=== PATIENT | male | born 1935 | race Caucasian/White ===

== ENCOUNTER 2018-06-12 01:16 | Inpatient (IN) ==
[2018-06-12 02:16] LABS: Basophils # 0.1 10*3/uL (0.0-0.2); Basophils % 0.6 % (0.0-0.8); Eosinophils # 0.2 10*3/uL (0.0-0.87); Eosinophils % 2.3 % (0.00-10.9); Hematocrit 41.7 VOL% (42.0-52.0); Hemoglobin 14.3 GM/DL (14.0-18.0); Immature Granulocytes % 0.5 %; Immature Granulocytes Absolute 0.04 #; Lymphocytes # 1.1 10*3/uL (1.4-4.0); Mean Corpuscular HGB Conc 34.3 GM/DL (32-36); Mean Corpuscular Hemoglobin 32 PG (27-34); Mean Corpuscular Volume 93.7 FL (87-102); Mean Platelet Volume 9.7 FL (9.6-12.0); Monocytes # 0.8 10*3/uL (0.11-0.8); Monocytes % 8.9 % (1.7-12.7); Neutrophils # 6.3 10*3/uL (1.4-7.4); Neutrophils % 74.7 % (38.7-73.9); Platelet Count 258 T/CUMM (130-400); Red Blood Count 4.45 MC/CUMM (3.8-5.5); Red Cell Distribution Width 13.4 % (9.3-17.3); White Blood Count 8.4 T/CUMM (4-12)
[2018-06-12 02:37] LABS: Alanine Aminotransferase 40 U/L (16-61); Alkaline Phosphatase 97 U/L (45-117); Aspartate Amino Transferase 29 U/L (0-37); Bilirubin,Total < 0.39 MG/DL (0.2-1.0); Blood Urea Nitrogen 14 MG/DL (7-18); Calcium 9.1 MG/DL (8.5-10.1); Glucose 132 MG/DL (74-106); Potassium 3.7 MMOL/L (3.5-5.1); Sodium 136 MMOL/L (136-145); Total Protein 8.1 G/DL (6.4-8.3)
[2018-06-12] MEDS ORDERED: METOPROLOL TARTRATE 5 MG/5 ML VIAL IV STA (03:49)
[2018-06-12] MEDS ORDERED: METOPROLOL TARTRATE 25 MG TABLET PO ONE (04:50)
[2018-06-12] MEDS ORDERED: ACETAMINOPHEN 325 MG TABLET PO PRN (04:51)
[2018-06-12] MEDS ORDERED: ONDANSETRON 4 MG/2 ML VIAL IV PRN (04:51)
[2018-06-12] MEDS ORDERED: ATENOLOL 25 MG TABLET PO STA (05:22)
[2018-06-12 07:39] LABS: Thyroid Stimulating Hormone 4.12 uIU/ml (0.358-3.74)
[2018-06-12] MEDS ORDERED: ENOXAPARIN 40 MG/0.4 ML SYRINGE SUBCUT SCH (09:00)
[2018-06-12] MEDS ORDERED: ENOXAPARIN 60 MG/0.6 ML SYRINGE SUBCUT SCH (12:00)
[2018-06-12] MEDS ORDERED: METOPROLOL TARTRATE 50 MG TABLET PO SCH (21:00)
[2018-06-12] MEDS: APIXABAN 5 MG TABLET PO SCH (21:45)
[2018-06-12] MEDS: ATORVASTATIN 20 MG TABLET PO SCH (21:45)
[2018-06-12] MEDS: METOPROLOL SUCCINATE XL 25 MG TABLET PO SCH (21:46)
[2018-06-13 05:01] LABS: Basophils # 0.1 10*3/uL (0.0-0.2); Basophils % 0.8 % (0.0-0.8); Eosinophils # 0.5 10*3/uL (0.0-0.87); Eosinophils % 6.6 % (0.00-10.9); Hematocrit 40.3 VOL% (42.0-52.0); Hemoglobin 13.8 GM/DL (14.0-18.0); Immature Granulocytes % 0.3 %; Immature Granulocytes Absolute 0.02 #; Lymphocytes # 1.4 10*3/uL (1.4-4.0); Lymphocytes % 18.5 % (21.2-54.2); Mean Corpuscular HGB Conc 34.2 GM/DL (32-36); Mean Corpuscular Hemoglobin 32 PG (27-34); Mean Corpuscular Volume 93.3 FL (87-102); Mean Platelet Volume 9.9 FL (9.6-12.0); Monocytes # 0.8 10*3/uL (0.11-0.8); Monocytes % 11.1 % (1.7-12.7); Neutrophils # 4.7 10*3/uL (1.4-7.4); Neutrophils % 62.7 % (38.7-73.9); Platelet Count 253 T/CUMM (130-400); Red Blood Count 4.32 MC/CUMM (3.8-5.5); Red Cell Distribution Width 13.6 % (9.3-17.3); White Blood Count 7.6 T/CUMM (4-12)
[2018-06-13 05:40] LABS: Calcium 8.9 MG/DL (8.5-10.1); Osmolality,Calculated 281.3 MOS/KG (273-304); Potassium 4.1 MMOL/L (3.5-5.1)
[2018-06-13] MEDS: METOPROLOL SUCCINATE XL 25 MG TABLET PO SCH (08:37)
[2018-06-13] MEDS: APIXABAN 5 MG TABLET PO SCH ×2 (08:37→22:16)
[2018-06-13] MEDS: METOPROLOL SUCCINATE XL 50 MG TABLET PO SCH ×2 (09:22→22:16)
[2018-06-13] MEDS ORDERED: AMIODARONE INJ 150 MG in DEXTROSE 5% 100 ML IV ONE (13:20)
[2018-06-13] MEDS ORDERED: AMIODARONE INJ 450 MG in DEXTROSE 5% 241 ML IV SCH (13:30)
[2018-06-13] MEDS: ATORVASTATIN 20 MG TABLET PO SCH (22:16)
[2018-06-13] MEDS: AMIODARONE INJ 450 MG in DEXTROSE 5% 241 ML IV SCH (22:30)
[2018-06-14 06:54] LABS: Basophils % 0.4 % (0.0-0.8); Eosinophils # 0.5 10*3/uL (0.0-0.87); Eosinophils % 4.6 % (0.00-10.9); Hematocrit 40.2 VOL% (42.0-52.0); Hemoglobin 13.5 GM/DL (14.0-18.0); Immature Granulocytes % 0.4 %; Immature Granulocytes Absolute 0.04 #; Lymphocytes # 1.5 10*3/uL (1.4-4.0); Lymphocytes % 13.8 % (21.2-54.2); Mean Corpuscular HGB Conc 33.6 GM/DL (32-36); Mean Corpuscular Hemoglobin 32 PG (27-34); Mean Corpuscular Volume 95.3 FL (87-102); Mean Platelet Volume 10.2 FL (9.6-12.0); Monocytes # 1.2 10*3/uL (0.11-0.8); Monocytes % 11.4 % (1.7-12.7); Neutrophils # 7.4 10*3/uL (1.4-7.4); Neutrophils % 69.4 % (38.7-73.9); Platelet Count 236 T/CUMM (130-400); Red Blood Count 4.22 MC/CUMM (3.8-5.5); Red Cell Distribution Width 13.6 % (9.3-17.3); White Blood Count 10.7 T/CUMM (4-12)
[2018-06-14] MEDS: APIXABAN 5 MG TABLET PO SCH ×2 (08:35→21:13)
[2018-06-14] MEDS: METOPROLOL SUCCINATE XL 50 MG TABLET PO SCH (08:35)
[2018-06-14 08:54] LABS: Eosinophils 4 % (0-10); Lymphocytes 8 % (20-55); Segmented Neutrophils 82 % (50-85); Total Cells Counted 100
[2018-06-14 08:55] LABS: Reactive Lymphocytes 1+
[2018-06-14 08:57] LABS: Hypochromasia 1+; Platelet Estimate Normal
[2018-06-14 09:01] LABS: Giant Platelets Few; Ovalocytes 1+
[2018-06-14] MEDS ORDERED: METOPROLOL SUCCINATE XL 50 MG TABLET PO ONE (09:49)
[2018-06-14] MEDS: ATORVASTATIN 20 MG TABLET PO SCH (21:13)
[2018-06-14] MEDS: METOPROLOL SUCCINATE XL 100 MG TABLET PO SCH (21:13)
[2018-06-14] MEDS: AMIODARONE INJ 450 MG in DEXTROSE 5% 241 ML IV SCH (21:18)
[2018-06-15] MEDS: APIXABAN 5 MG TABLET PO SCH (08:29)
[2018-06-15] MEDS: METOPROLOL SUCCINATE XL 100 MG TABLET PO SCH (08:29)
[2018-06-15 08:32] VITALS: BP 127/73
== END 2018-06-15 12:24 | disposition home or self-care (01) | DRG 309 ==
LOC: EDUNIT# → EDBD → N.ED 01:16 → N.EDINP 01:16 → N.2W 11:15 → N.TELEN 13:14 → SUATTDRO 06-13 14:29
PROVIDERS: ADMIT Emergency Medicine; ATTEND Internal Medicine

== ENCOUNTER 2018-10-21 13:28 | Inpatient (IN) ==
[2018-10-21] MEDS ORDERED: ASPIRIN 325 MG TABLET PO STA (14:35)
[2018-10-21 14:43] LABS: Basophils # 0.1 10*3/uL (0.0-0.2); Basophils % 0.7 % (0.0-0.8); Eosinophils # 0.2 10*3/uL (0.0-0.87); Eosinophils % 2.8 % (0.00-10.9); Hematocrit 40.8 VOL% (42.0-52.0); Hemoglobin 13.8 GM/DL (14.0-18.0); Immature Granulocytes % 0.7 %; Immature Granulocytes Absolute 0.05 #; Lymphocytes # 1.4 10*3/uL (1.4-4.0); Lymphocytes % 18.3 % (21.2-54.2); Mean Corpuscular HGB Conc 33.8 GM/DL (32-36); Mean Corpuscular Hemoglobin 31 PG (27-34); Mean Corpuscular Volume 91.3 FL (87-102); Monocytes # 0.8 10*3/uL (0.11-0.8); Neutrophils % 66.5 % (38.7-73.9); Platelet Count 252 T/CUMM (130-400); Red Blood Count 4.47 MC/CUMM (3.8-5.5); Red Cell Distribution Width 13.5 % (9.3-17.3); White Blood Count 7.5 T/CUMM (4-12)
[2018-10-21 14:49] LABS: PT Patient Result 10.8 SECS; Partial Thromboplastin Time 25.2 SECS (0-40)
[2018-10-21 14:52] LABS: Alanine Aminotransferase 64 U/L (16-61); Albumin 3.6 G/DL (3.4-5.0); Alkaline Phosphatase 135 U/L (45-117); Aspartate Amino Transferase 49 U/L (0-37); Bilirubin,Total < 0.39 MG/DL (0.2-1.0); Blood Urea Nitrogen 14 MG/DL (7-18); Calcium 8.7 MG/DL (8.5-10.1); Glucose 155 MG/DL (74-106); Potassium 3.7 MMOL/L (3.5-5.1); Sodium 136 MMOL/L (136-145); Total Protein 7.3 G/DL (6.4-8.3)
[2018-10-21] MEDS ORDERED: DOCUSATE SODIUM 100 MG CAPSULE PO PRN (15:34)
[2018-10-21] MEDS ORDERED: traZODone 50 MG TABLET PO PRN (15:34)
[2018-10-21] MEDS ORDERED: ACETAMINOPHEN 325 MG TABLET PO PRN (15:34)
[2018-10-21] MEDS ORDERED: ONDANSETRON 4 MG/2 ML VIAL IV PRN (15:34)
[2018-10-21] MEDS ORDERED: ENOXAPARIN 40 MG/0.4 ML SYRINGE SUBCUT SCH (16:00)
[2018-10-21 17:40] LABS: Apearance,Urine CLEAR (Clear); Bacteria,Urine Occasional /HPF (Few); Bilirubin,Urine Negative (Negative); Blood, Urine Negative (Negative); Glucose,Urine (UA) Negative (Negative); Ketones,Urine Negative (Negative); Nitrite,Urine Negative (Negative); Protein,Urine Negative; RBC,Urine 1 /HPF (0-4); Urine Color Yellow (Yellow); Urine Specific Gravity 1.006 (1.001-1.035); Urine Urobilinogen < 2.0 EU/DL (0.2-1.0); WBC,Urine 5 /HPF (0-6)
[2018-10-21] MEDS ORDERED: INFLUENZA VIRUS VACCINE 0.5 ML SYRINGE IM ONE (17:49)
[2018-10-21] MEDS: PHENYTOIN ER 100 MG CAPSULE PO SCH (20:59)
[2018-10-21] MEDS: METOPROLOL SUCCINATE XL 100 MG TABLET PO SCH (20:59)
[2018-10-21] MEDS: ATORVASTATIN 20 MG TABLET PO SCH (20:59)
[2018-10-21] MEDS: APIXABAN 5 MG TABLET PO SCH (21:00)
[2018-10-21 23:18] LABS: Barbiturates Screen,Urine Negative (Negative); Benzodiazepines Screen,Urine Negative (Negative); Cannabinoid Screen,Urine Negative (Negative); Opiate Screen,Urine Negative (Negative); Phencyclidine Screen,Urine Negative (Negative)
[2018-10-22 05:16] LABS: Basophils # 0.1 10*3/uL (0.0-0.2); Basophils % 0.5 % (0.0-0.8); Eosinophils # 0.3 10*3/uL (0.0-0.87); Eosinophils % 3.4 % (0.00-10.9); Hematocrit 40.5 VOL% (42.0-52.0); Hemoglobin 13.7 GM/DL (14.0-18.0); Immature Granulocytes % 0.3 %; Immature Granulocytes Absolute 0.03 #; Lymphocytes # 1.6 10*3/uL (1.4-4.0); Lymphocytes % 16.5 % (21.2-54.2); Mean Corpuscular HGB Conc 33.8 GM/DL (32-36); Mean Corpuscular Hemoglobin 31 PG (27-34); Mean Corpuscular Volume 91.2 FL (87-102); Mean Platelet Volume 10.2 FL (9.6-12.0); Monocytes # 1.3 10*3/uL (0.11-0.8); Monocytes % 13.7 % (1.7-12.7); Neutrophils # 6.4 10*3/uL (1.4-7.4); Neutrophils % 65.6 % (38.7-73.9); Platelet Count 244 T/CUMM (130-400); Red Blood Count 4.44 MC/CUMM (3.8-5.5); Red Cell Distribution Width 13.4 % (9.3-17.3); White Blood Count 9.8 T/CUMM (4-12)
[2018-10-22 05:37] LABS: Calcium 8.6 MG/DL (8.5-10.1); Osmolality,Calculated 273.7 MOS/KG (273-304); Potassium 3.8 MMOL/L (3.5-5.1); Thyroid Stimulating Hormone 3.73 uIU/ml (0.358-3.74)
[2018-10-22] MEDS: PANTOPRAZOLE 40 MG TABLET PO SCH (08:10)
[2018-10-22] MEDS: APIXABAN 5 MG TABLET PO SCH ×2 (08:10→21:01)
[2018-10-22] MEDS: PHENYTOIN ER 100 MG CAPSULE PO SCH ×2 (08:10→21:01)
[2018-10-22] MEDS: METOPROLOL SUCCINATE XL 100 MG TABLET PO SCH ×2 (08:10→21:01)
[2018-10-22] MEDS ORDERED: MAGNESIUM SULF RIDER 4 GM in PREMIX 1 EACH IV PRN (10:38)
[2018-10-22] MEDS ORDERED: MAGNESIUM SULF RIDER 2 GM in PREMIX 1 EACH IV PRN (10:38)
[2018-10-22] MEDS ORDERED: POTASSIUM CHLORIDE 20 MEQ TABLET PO ONE (12:30)
[2018-10-22] MEDS: ATORVASTATIN 20 MG TABLET PO SCH (21:01)
[2018-10-23 05:33] LABS: Calcium 8.8 MG/DL (8.5-10.1)
[2018-10-23 05:34] LABS: Osmolality,Calculated 276.5 MOS/KG (273-304); Potassium 4.8 MMOL/L (3.5-5.1)
[2018-10-23 05:56] LABS: Basophils # 0.1 10*3/uL (0.0-0.2); Basophils % 0.8 % (0.0-0.8); Eosinophils # 0.5 10*3/uL (0.0-0.87); Eosinophils % 5.7 % (0.00-10.9); Hematocrit 40.5 VOL% (42.0-52.0); Hemoglobin 13.6 GM/DL (14.0-18.0); Immature Granulocytes % 0.4 %; Immature Granulocytes Absolute 0.03 #; Lymphocytes # 1.5 10*3/uL (1.4-4.0); Lymphocytes % 18.3 % (21.2-54.2); Mean Corpuscular HGB Conc 33.6 GM/DL (32-36); Mean Corpuscular Hemoglobin 31 PG (27-34); Mean Corpuscular Volume 92.7 FL (87-102); Mean Platelet Volume 10.3 FL (9.6-12.0); Monocytes % 12.4 % (1.7-12.7); Neutrophils % 62.4 % (38.7-73.9); Platelet Count 242 T/CUMM (130-400); Red Blood Count 4.37 MC/CUMM (3.8-5.5); Red Cell Distribution Width 13.6 % (9.3-17.3)
[2018-10-23] MEDS: METOPROLOL SUCCINATE XL 100 MG TABLET PO SCH ×2 (09:27→21:08)
[2018-10-23] MEDS: PANTOPRAZOLE 40 MG TABLET PO SCH (09:27)
[2018-10-23] MEDS: APIXABAN 5 MG TABLET PO SCH ×2 (09:27→21:08)
[2018-10-23] MEDS: PHENYTOIN ER 100 MG CAPSULE PO SCH ×2 (09:27→21:08)
[2018-10-23] MEDS: ATORVASTATIN 20 MG TABLET PO SCH (21:08)
[2018-10-24 05:51] LABS: Basophils # 0.1 10*3/uL (0.0-0.2); Basophils % 0.8 % (0.0-0.8); Eosinophils # 0.4 10*3/uL (0.0-0.87); Eosinophils % 5.6 % (0.00-10.9); Hematocrit 40.6 VOL% (42.0-52.0); Hemoglobin 13.9 GM/DL (14.0-18.0); Immature Granulocytes % 0.3 %; Immature Granulocytes Absolute 0.02 #; Lymphocytes # 1.8 10*3/uL (1.4-4.0); Lymphocytes % 22.3 % (21.2-54.2); Mean Corpuscular HGB Conc 34.2 GM/DL (32-36); Mean Corpuscular Hemoglobin 31 PG (27-34); Mean Platelet Volume 10.3 FL (9.6-12.0); Monocytes # 0.9 10*3/uL (0.11-0.8); Monocytes % 11.1 % (1.7-12.7); Neutrophils # 4.7 10*3/uL (1.4-7.4); Neutrophils % 59.9 % (38.7-73.9); Platelet Count 256 T/CUMM (130-400); Red Blood Count 4.46 MC/CUMM (3.8-5.5); Red Cell Distribution Width 13.3 % (9.3-17.3); White Blood Count 7.9 T/CUMM (4-12)
[2018-10-24 06:08] LABS: Calcium 8.5 MG/DL (8.5-10.1); Osmolality,Calculated 271.8 MOS/KG (273-304)
[2018-10-24] MEDS: PHENYTOIN ER 100 MG CAPSULE PO SCH (08:38)
[2018-10-24] MEDS: PANTOPRAZOLE 40 MG TABLET PO SCH (08:39)
[2018-10-24] MEDS: METOPROLOL SUCCINATE XL 100 MG TABLET PO SCH (08:39)
[2018-10-24] MEDS: APIXABAN 5 MG TABLET PO SCH (08:39)
[2018-10-24 12:11] VITALS: BP 108/73
== END 2018-10-24 13:33 | disposition home or self-care (01) | DRG 312 ==
LOC: N.ED 13:28 → SUATTDRO 15:46 → N.EDINP 15:46 → N.2W 16:57 → N.2E 18:07
PROVIDERS: ADMIT Internal Medicine; ATTEND Internal Medicine

== ENCOUNTER 2019-12-12 01:19 | Observation (INO) ==
[2019-12-12] MEDS ORDERED: MECLIZINE 25 MG TABLET PO STA (02:51)
[2019-12-12] MEDS ORDERED: ONDANSETRON 4 MG/2 ML VIAL IV STA (02:51)
[2019-12-12 03:18] LABS: Basophils # 0.1 10*3/uL (0.0-0.2); Basophils % 0.6 % (0.0-0.8); Eosinophils # 0.4 10*3/uL (0.0-0.87); Hemoglobin 14.4 GM/DL (14.0-18.0); Immature Granulocytes % 0.3 %; Immature Granulocytes Absolute 0.02 #; Lymphocytes # 1.5 10*3/uL (1.4-4.0); Lymphocytes % 18.6 % (21.2-54.2); Mean Corpuscular HGB Conc 33.5 GM/DL (32-36); Mean Corpuscular Volume 92.7 FL (87-102); Mean Platelet Volume 10.1 FL (9.6-12.0); Monocytes % 11.3 % (1.7-12.7); Neutrophils % 64.2 % (38.7-73.9); Platelet Count 238 T/CUMM (130-400); Red Blood Count 4.64 MC/CUMM (3.8-5.5); Red Cell Distribution Width 14.4 % (9.3-17.3); White Blood Count 7.8 T/CUMM (4-12)
[2019-12-12 03:35] LABS: PT Patient Result 11.1 SECS (9.6-12.2)
[2019-12-12 04:22] LABS: Apearance,Urine CLOUDY (Clear); Bilirubin,Urine Negative (Negative); Blood, Urine Small mg/dL (Negative); Glucose,Urine (UA) Negative (Negative); Ketones,Urine Negative (Negative); Nitrite,Urine Negative (Negative); Protein,Urine Negative; RBC,Urine 8 /HPF (0-4); Squamous Epithelial Cell,Urine Occasional /HPF (0-10); Urine Color Yellow (Yellow); Urine Specific Gravity 1.005 (1.001-1.035); Urine Urobilinogen < 2.0 EU/DL (0.2-1.0); WBC,Urine 325 /HPF (0-6)
[2019-12-12 04:24] LABS: Alanine Aminotransferase 34 U/L (16-61); Albumin 3.6 G/DL (3.4-5.0); Alkaline Phosphatase 129 U/L (45-117); Aspartate Amino Transferase 25 U/L (0-37); Bilirubin,Total < 0.39 MG/DL (0.2-1.0); Blood Urea Nitrogen 13 MG/DL (7-18); Calcium 8.7 MG/DL (8.5-10.1); Estimated Glom Filtration Rate 86 ML/MIN; Glucose 95 MG/DL (74-106); Osmolality,Calculated 267.2 MOS/KG (273-304); Total Protein 7.5 G/DL (6.4-8.3)
[2019-12-12] MEDS ORDERED: cefTRIAXone 1,000 MG in SODIUM CHLORIDE 0.9% 100 ML IV STA (04:29)
[2019-12-12] MEDS ORDERED: ACETAMINOPHEN 325 MG TABLET PO PRN (05:27)
[2019-12-12] MEDS ORDERED: ONDANSETRON 4 MG/2 ML VIAL IV PRN (05:27)
[2019-12-12] MEDS: METOPROLOL SUCCINATE XL 25 MG TABLET PO SCH ×2 (08:54→20:36)
[2019-12-12] MEDS: APIXABAN 5 MG TABLET PO SCH ×2 (08:54→20:37)
[2019-12-12] MEDS: DILTIAZEM CD 120 MG CAPSULE PO SCH ×2 (08:54→20:39)
[2019-12-12] MEDS ORDERED: PANTOPRAZOLE 40 MG TABLET PO SCH (09:00)
[2019-12-12] MEDS ORDERED: INFLUENZA VIRUS VACCINE 0.5 ML SYRINGE IM ONE (17:06)
[2019-12-12] MEDS ORDERED: RANITIDINE 150 MG TABLET PO SCH (21:00)
[2019-12-13 05:29] LABS: Basophils % 0.5 % (0.0-0.8); Eosinophils # 0.5 10*3/uL (0.0-0.87); Eosinophils % 6.5 % (0.00-10.9); Hemoglobin 13.1 GM/DL (14.0-18.0); Immature Granulocytes % 0.4 %; Immature Granulocytes Absolute 0.03 #; Lymphocytes # 1.6 10*3/uL (1.4-4.0); Lymphocytes % 19.2 % (21.2-54.2); Mean Corpuscular HGB Conc 33.6 GM/DL (32-36); Mean Corpuscular Volume 92.6 FL (87-102); Mean Platelet Volume 10.3 FL (9.6-12.0); Monocytes % 16.5 % (1.7-12.7); Neutrophils % 56.9 % (38.7-73.9); Platelet Count 241 T/CUMM (130-400); Red Blood Count 4.21 MC/CUMM (3.8-5.5); Red Cell Distribution Width 14.2 % (9.3-17.3); White Blood Count 8.3 T/CUMM (4-12)
[2019-12-13 05:51] LABS: Calcium 8.8 MG/DL (8.5-10.1); Osmolality,Calculated 269.1 MOS/KG (273-304)
[2019-12-13] MEDS ORDERED: cefTRIAXone 1,000 MG in SYRINGE 1 EACH IV SCH (06:00)
[2019-12-13 06:06] LABS: Band Neutrophils 6 % (0-10); Eosinophils 9 % (0-10); Lymphocytes 16 % (20-55); Platelet Estimate Normal; Segmented Neutrophils 54 % (50-85); Total Cells Counted 100
[2019-12-13 06:07] LABS: Anisocytosis Slight; Macrocytosis 1+
[2019-12-13] MEDS ORDERED: PNEUMOCOCCAL VACCINE (13 VALENT) 0.5 ML SYRINGE IM ONE (08:23)
[2019-12-13] MEDS: METOPROLOL SUCCINATE XL 25 MG TABLET PO SCH (08:45)
[2019-12-13] MEDS: DILTIAZEM CD 120 MG CAPSULE PO SCH (08:45)
[2019-12-13] MEDS: APIXABAN 5 MG TABLET PO SCH (08:47)
[2019-12-13] MEDS ORDERED: PHENYTOIN ER 100 MG CAPSULE PO SCH (09:00)
[2019-12-13 12:48] VITALS: BP 130/77
== END 2019-12-13 15:01 | disposition home health service (06) ==
LOC: N.EDINP 01:19 → N.ED 01:19 → N.4E 06:14
PROVIDERS: ADMIT Internal Medicine; ATTEND Internal Medicine

== ENCOUNTER 2020-12-07 13:06 | Inpatient (IN) ==
[2020-12-07 14:35] LABS: Basophils # 0.1 10*3/uL (0.0-0.2); Basophils % 0.7 % (0.0-0.8); Eosinophils # 0.2 10*3/uL (0.0-0.87); Eosinophils % 3.3 % (0.00-10.9); Hematocrit 40.1 VOL% (42.0-52.0); Immature Granulocytes % 0.3 %; Immature Granulocytes Absolute 0.02 #; Lymphocytes # 1.4 10*3/uL (1.4-4.0); Lymphocytes % 19.8 % (21.2-54.2); Mean Corpuscular HGB Conc 34.9 GM/DL (32-36); Mean Corpuscular Volume 87.7 FL (87-102); Mean Platelet Volume 9.4 FL (9.6-12.0); Monocytes % 15.4 % (1.7-12.7); Neutrophils % 60.5 % (38.7-73.9); Platelet Count 254 T/CUMM (130-400); Red Blood Count 4.57 MC/CUMM (3.8-5.5); Red Cell Distribution Width 14.2 % (9.3-17.3); White Blood Count 7.3 T/CUMM (4-12)
[2020-12-07 14:44] LABS: PT Patient Result 10.9 SECS (9.8-11.9)
[2020-12-07 14:57] LABS: Alanine Aminotransferase 26 U/L (16-61); Albumin 3.5 G/DL (3.4-5.0); Alkaline Phosphatase 132 U/L (45-117); Aspartate Amino Transferase 24 U/L (0-37); Bilirubin,Total < 0.39 MG/DL (0.2-1.0); Blood Urea Nitrogen 16 MG/DL (7-18); Estimated Glom Filtration Rate 79 ML/MIN; Glucose 93 MG/DL (74-106); Osmolality,Calculated 268.2 MOS/KG (273-304); Total Protein 7.9 G/DL (6.4-8.3)
[2020-12-07] MEDS ORDERED: ACETAMINOPHEN 325 MG TABLET PO PRN (16:45)
[2020-12-07] MEDS ORDERED: DEXTROSE 50% 25 GM/50 ML VIAL IV PRN (16:45)
[2020-12-07] MEDS ORDERED: hydrALAZINE 20 MG/1 ML VIAL IV PRN (16:45)
[2020-12-07] MEDS ORDERED: ONDANSETRON 4 MG/2 ML VIAL IV PRN (16:45)
[2020-12-07] MEDS ORDERED: GLUCAGON 1 MG VIAL IM PRN (16:45)
[2020-12-07] MEDS ORDERED: ASPIRIN CHEW 81 MG TABLET PO ONE (16:49)
[2020-12-07 16:58] LABS: Bacteria,Urine Few /HPF (Few); Bilirubin,Urine Negative (Negative); Blood, Urine Negative (Negative); Glucose,Urine (UA) Negative (Negative); Ketones,Urine Negative (Negative); Nitrite,Urine Negative (Negative); Protein,Urine Negative; RBC,Urine 2 /HPF (0-4); Squamous Epithelial Cell,Urine Occasional /HPF (0-10); Urine Appearance CLEAR (Clear); Urine Color Yellow (Yellow); Urine Specific Gravity 1.009 (1.001-1.035); Urine Urobilinogen < 2.0 EU/DL (0.2-1.0); WBC,Urine 37 /HPF (0-6)
[2020-12-07 17:19] LABS: Risk Ratio 3.06; Thyroid Stimulating Hormone 3.38 uIU/ml (0.358-3.74); VLDL CHOLESTEROL 18.4 MG/DL
[2020-12-07] MEDS: PHENYTOIN ER 100 MG CAPSULE PO SCH (22:24)
[2020-12-07] MEDS: ATORVASTATIN 40 MG TABLET PO SCH (22:25)
[2020-12-07] MEDS: METOPROLOL SUCCINATE XL 100 MG TABLET PO SCH (22:25)
[2020-12-07] MEDS: APIXABAN 5 MG TABLET PO SCH (22:25)
[2020-12-08 05:55] LABS: Basophils # 0.1 10*3/uL (0.0-0.2); Basophils % 0.5 % (0.0-0.8); Eosinophils # 0.2 10*3/uL (0.0-0.87); Eosinophils % 1.8 % (0.00-10.9); Hematocrit 39.5 VOL% (42.0-52.0); Hemoglobin 13.5 GM/DL (14.0-18.0); Immature Granulocytes % 0.4 %; Immature Granulocytes Absolute 0.04 #; Lymphocytes % 9.8 % (21.2-54.2); Mean Corpuscular HGB Conc 34.2 GM/DL (32-36); Mean Corpuscular Volume 88.6 FL (87-102); Mean Platelet Volume 9.9 FL (9.6-12.0); Monocytes % 10.3 % (1.7-12.7); Neutrophils % 77.2 % (38.7-73.9); Platelet Count 249 T/CUMM (130-400); Red Blood Count 4.46 MC/CUMM (3.8-5.5); Red Cell Distribution Width 14.2 % (9.3-17.3); White Blood Count 10.5 T/CUMM (4-12)
[2020-12-08 06:07] LABS: Calcium 8.9 MG/DL (8.5-10.1)
[2020-12-08] MEDS: DILTIAZEM CD 120 MG CAPSULE PO SCH (09:30)
[2020-12-08] MEDS: APIXABAN 5 MG TABLET PO SCH ×2 (09:30→21:52)
[2020-12-08] MEDS: PHENYTOIN ER 100 MG CAPSULE PO SCH ×3 (09:31→21:52)
[2020-12-08] MEDS: PANTOPRAZOLE 40 MG TABLET PO SCH (09:32)
[2020-12-08] MEDS: METOPROLOL SUCCINATE XL 100 MG TABLET PO SCH ×2 (09:32→21:52)
[2020-12-08] MEDS: ATORVASTATIN 40 MG TABLET PO SCH (21:52)
[2020-12-09 05:47] LABS: Basophils # 0.1 10*3/uL (0.0-0.2); Basophils % 0.7 % (0.0-0.8); Eosinophils # 0.3 10*3/uL (0.0-0.87); Eosinophils % 3.5 % (0.00-10.9); Hemoglobin 14.1 GM/DL (14.0-18.0); Immature Granulocytes % 0.3 %; Immature Granulocytes Absolute 0.02 #; Lymphocytes # 1.4 10*3/uL (1.4-4.0); Lymphocytes % 19.4 % (21.2-54.2); Mean Corpuscular HGB Conc 34.4 GM/DL (32-36); Mean Corpuscular Volume 88.7 FL (87-102); Mean Platelet Volume 9.7 FL (9.6-12.0); Monocytes % 13.4 % (1.7-12.7); Neutrophils % 62.7 % (38.7-73.9); Platelet Count 254 T/CUMM (130-400); Red Blood Count 4.62 MC/CUMM (3.8-5.5); Red Cell Distribution Width 14.3 % (9.3-17.3); White Blood Count 7.2 T/CUMM (4-12)
[2020-12-09 06:15] LABS: Calcium 9.2 MG/DL (8.5-10.1)
[2020-12-09] MEDS: DILTIAZEM CD 120 MG CAPSULE PO SCH (09:29)
[2020-12-09] MEDS: METOPROLOL SUCCINATE XL 100 MG TABLET PO SCH ×2 (09:29→21:39)
[2020-12-09] MEDS: ASPIRIN CHEW 81 MG TABLET PO SCH (09:30)
[2020-12-09] MEDS: PHENYTOIN ER 100 MG CAPSULE PO SCH ×3 (09:31→21:38)
[2020-12-09] MEDS: PANTOPRAZOLE 40 MG TABLET PO SCH (09:31)
[2020-12-09] MEDS: APIXABAN 5 MG TABLET PO SCH ×2 (09:32→21:39)
[2020-12-09] MEDS: cefTRIAXone 1,000 MG in SYRINGE 1 EACH IV SCH (17:06)
[2020-12-09] MEDS: ATORVASTATIN 40 MG TABLET PO SCH (21:39)
[2020-12-10 02:48] LABS: Basophils # 0.1 10*3/uL (0.0-0.2); Basophils % 0.5 % (0.0-0.8); Eosinophils # 0.2 10*3/uL (0.0-0.87); Eosinophils % 2.6 % (0.00-10.9); Hemoglobin 13.6 GM/DL (14.0-18.0); Immature Granulocytes % 0.4 %; Immature Granulocytes Absolute 0.04 #; Lymphocytes # 1.3 10*3/uL (1.4-4.0); Lymphocytes % 14.2 % (21.2-54.2); Mean Corpuscular HGB Conc 34.9 GM/DL (32-36); Mean Corpuscular Volume 87.6 FL (87-102); Mean Platelet Volume 9.6 FL (9.6-12.0); Neutrophils % 70.3 % (38.7-73.9); Platelet Count 257 T/CUMM (130-400); Red Blood Count 4.45 MC/CUMM (3.8-5.5); Red Cell Distribution Width 13.9 % (9.3-17.3); White Blood Count 9.4 T/CUMM (4-12)
[2020-12-10 03:24] LABS: Calcium 8.8 MG/DL (8.5-10.1); Osmolality,Calculated 274.8 MOS/KG (273-304)
[2020-12-10] MEDS: PANTOPRAZOLE 40 MG TABLET PO SCH (09:01)
[2020-12-10] MEDS: APIXABAN 5 MG TABLET PO SCH ×2 (09:01→22:56)
[2020-12-10] MEDS: ASPIRIN CHEW 81 MG TABLET PO SCH (09:01)
[2020-12-10] MEDS: DILTIAZEM CD 120 MG CAPSULE PO SCH (09:01)
[2020-12-10] MEDS: METOPROLOL SUCCINATE XL 100 MG TABLET PO SCH ×2 (09:02→22:56)
[2020-12-10] MEDS: PHENYTOIN ER 100 MG CAPSULE PO SCH ×3 (09:04→22:56)
[2020-12-10] MEDS: cefTRIAXone 1,000 MG in SYRINGE 1 EACH IV SCH (16:15)
[2020-12-10] MEDS: ATORVASTATIN 40 MG TABLET PO SCH (22:56)
[2020-12-11 06:23] LABS: Basophils # 0.1 10*3/uL (0.0-0.2); Basophils % 0.8 % (0.0-0.8); Eosinophils # 0.2 10*3/uL (0.0-0.87); Hemoglobin 14.2 GM/DL (14.0-18.0); Immature Granulocytes % 0.3 %; Immature Granulocytes Absolute 0.02 #; Lymphocytes # 1.2 10*3/uL (1.4-4.0); Lymphocytes % 15.3 % (21.2-54.2); Mean Corpuscular Volume 94.1 FL (87-102); Mean Platelet Volume 9.9 FL (9.6-12.0); Monocytes % 14.4 % (1.7-12.7); Neutrophils % 66.2 % (38.7-73.9); Platelet Count 234 T/CUMM (130-400); Red Blood Count 4.57 MC/CUMM (3.8-5.5)
[2020-12-11 06:34] LABS: Calcium 8.8 MG/DL (8.5-10.1); Osmolality,Calculated 266.4 MOS/KG (273-304)
[2020-12-11] MEDS: DILTIAZEM CD 120 MG CAPSULE PO SCH (08:57)
[2020-12-11] MEDS: ASPIRIN CHEW 81 MG TABLET PO SCH (08:58)
[2020-12-11] MEDS: METOPROLOL SUCCINATE XL 100 MG TABLET PO SCH ×2 (08:58→22:27)
[2020-12-11] MEDS: PHENYTOIN ER 100 MG CAPSULE PO SCH ×3 (08:58→22:27)
[2020-12-11] MEDS: PANTOPRAZOLE 40 MG TABLET PO SCH (08:58)
[2020-12-11] MEDS: APIXABAN 5 MG TABLET PO SCH ×2 (08:58→22:27)
[2020-12-11] MEDS: cefTRIAXone 1,000 MG in SYRINGE 1 EACH IV SCH (14:08)
[2020-12-11] MEDS: ATORVASTATIN 40 MG TABLET PO SCH (22:27)
[2020-12-12 05:59] LABS: Basophils # 0.1 10*3/uL (0.0-0.2); Basophils % 0.7 % (0.0-0.8); Eosinophils # 0.3 10*3/uL (0.0-0.87); Eosinophils % 3.8 % (0.00-10.9); Hematocrit 39.8 VOL% (42.0-52.0); Hemoglobin 13.9 GM/DL (14.0-18.0); Immature Granulocytes % 0.5 %; Immature Granulocytes Absolute 0.04 #; Lymphocytes # 1.7 10*3/uL (1.4-4.0); Lymphocytes % 19.2 % (21.2-54.2); Mean Corpuscular HGB Conc 34.9 GM/DL (32-36); Mean Corpuscular Volume 87.7 FL (87-102); Neutrophils % 61.8 % (38.7-73.9); Platelet Count 267 T/CUMM (130-400); Red Blood Count 4.54 MC/CUMM (3.8-5.5); Red Cell Distribution Width 13.3 % (9.3-17.3); White Blood Count 8.7 T/CUMM (4-12)
[2020-12-12 06:25] LABS: Calcium 8.8 MG/DL (8.5-10.1); Osmolality,Calculated 263.7 MOS/KG (273-304)
[2020-12-12] MEDS: APIXABAN 5 MG TABLET PO SCH ×2 (09:19→23:21)
[2020-12-12] MEDS: PANTOPRAZOLE 40 MG TABLET PO SCH (09:19)
[2020-12-12] MEDS: DILTIAZEM CD 120 MG CAPSULE PO SCH (09:19)
[2020-12-12] MEDS: ASPIRIN CHEW 81 MG TABLET PO SCH (09:19)
[2020-12-12] MEDS: METOPROLOL SUCCINATE XL 100 MG TABLET PO SCH ×2 (09:20→23:21)
[2020-12-12] MEDS: PHENYTOIN ER 100 MG CAPSULE PO SCH ×3 (09:20→23:21)
[2020-12-12] MEDS: cefTRIAXone 1,000 MG in SYRINGE 1 EACH IV SCH (15:09)
[2020-12-12] MEDS: ATORVASTATIN 40 MG TABLET PO SCH (23:22)
[2020-12-13 05:49] LABS: Basophils # 0.1 10*3/uL (0.0-0.2); Basophils % 1.1 % (0.0-0.8); Eosinophils # 0.4 10*3/uL (0.0-0.87); Eosinophils % 5.4 % (0.00-10.9); Hematocrit 41.8 VOL% (42.0-52.0); Hemoglobin 14.1 GM/DL (14.0-18.0); Immature Granulocytes % 0.3 %; Immature Granulocytes Absolute 0.02 #; Lymphocytes # 1.2 10*3/uL (1.4-4.0); Lymphocytes % 16.4 % (21.2-54.2); Mean Corpuscular HGB Conc 33.7 GM/DL (32-36); Mean Corpuscular Volume 90.7 FL (87-102); Monocytes % 12.9 % (1.7-12.7); Neutrophils % 63.9 % (38.7-73.9); Platelet Count 258 T/CUMM (130-400); Red Blood Count 4.61 MC/CUMM (3.8-5.5); Red Cell Distribution Width 13.4 % (9.3-17.3); White Blood Count 7.4 T/CUMM (4-12)
[2020-12-13 06:16] LABS: Calcium 8.8 MG/DL (8.5-10.1); Osmolality,Calculated 263.7 MOS/KG (273-304)
[2020-12-13] MEDS: PHENYTOIN ER 100 MG CAPSULE PO SCH (08:46)
[2020-12-13] MEDS: APIXABAN 5 MG TABLET PO SCH (08:47)
[2020-12-13] MEDS: ASPIRIN CHEW 81 MG TABLET PO SCH (08:47)
[2020-12-13] MEDS: DILTIAZEM CD 120 MG CAPSULE PO SCH (08:47)
[2020-12-13] MEDS: METOPROLOL SUCCINATE XL 100 MG TABLET PO SCH (08:47)
[2020-12-13] MEDS: PANTOPRAZOLE 40 MG TABLET PO SCH (08:47)
[2020-12-13] MEDS ORDERED: CEFUROXIME 250 MG TABLET PO SCH (10:00)
[2020-12-13 12:07] VITALS: BP 126/76
== END 2020-12-13 12:56 | DRG 65 ==
LOC: N.ED 13:06 → N.EDINP 13:06 → N.TELEN 17:54
PROVIDERS: ADMIT Internal Medicine; ATTEND Internal Medicine